=== PATIENT | female | born 1950 | race Caucasian/White ===

== ENCOUNTER 2020-04-28 16:12 | Emergency (ER) | payer MEDICARE ==
[2020-04-28] MEDS ORDERED: TETANUS, DIPHTHERIA TOX,ADULT (TDVAX) 0.5 ML VIAL IM ONE (16:28)
[2020-04-28] MEDS ORDERED: Lidocaine 2% PF 5 ML VIAL ONE (16:28)
--- NOTE | 2020-04-28 21:07 | RAD ---
LEFT INDEX FINGER THREE VIEWS: 04/28/20 No major fracture was seen. The joints appear normal. A few tiny specks in the soft tissues could be opaque foreign bodies or they could be residual from prior trauma. IMPRESSION: No acute fracture. POS: HOME
== END 2020-04-28 17:11 | disposition home or self-care (01) ==
LOC: BURERS 16:12
DX: S91.115A Laceration without foreign body of left lesser toe(s) without damage to nail, initial encounter (principal); W22.8XXA Striking against or struck by other objects, initial encounter
CPT/HCPCS: 12001; 90471; 90714; J2001